=== PATIENT | female | born 1990 | race Caucasian/White ===

== ENCOUNTER → 2018-07-11 | Outpatient (CLI) | payer OTHER ==
--- NOTE | 2018-07-11 18:41 | Diagnostic Imaging Report ---
Exam: Right foot series, 3 views. Clinical History: Second toe injury Comparison: None. Findings: 3 views of the right foot. There is normal bone mineralization. Negative for acute, displaced fracture or dislocation. Joint spaces are preserved. Mild soft tissue swelling in the dorsal aspect of the foot. Impression: 1. No acute, displaced fracture or dislocation. Signed by: Dr. Jeet Shepherd M.D. on 07/11/2018 6:38 PM
== END ==
LOC: RAD 16:27
PROVIDERS: ATTEND Internal Medicine
DX: S99.921A Unspecified injury of right foot, initial encounter (principal)